=== PATIENT | male | born 1950 | race Caucasian/White ===

== ENCOUNTER 2017-05-06 13:19 | Emergency (ER) | payer MEDICARE ==
[~2017-05-06 13:19] MED LIST: Sodium Chloride Irrig Solution 250 ML BOT ONE
[2017-05-06] MEDS ORDERED: Lidocaine 1% 20 ML MDV ONE (14:10)
--- NOTE | 2017-05-06 14:10 | RAD ---
LEFT THUMB THREE VIEWS: 05/06/2017 HISTORY: Trauma to left distal thumb. Laceration. FINDINGS: There is a minimally comminuted fracture involving the distal portion of the distal phalanx and tuft distal phalanx, left thumb, with slight separation of the fracture fragments. There is subcutaneous emphysema and findings suggestive of a laceration involving the left thumb, both volarly and dorsally . The fracture is just beneath the nail bed, suggesting an open fracture. There is osteoarthritis i nvolving the first carpometacarpal joint and first metacarpophalangeal joint. IMPRESSION: Fracture tuft distal phalanx, which is just beneath the nail bed, and findings are likely related to an open fracture. There is a laceration involving the distal left thumb. POS: [facility]
[2017-05-06] MEDS ORDERED: Triple Antibiotic Oint 1 GM Packet ONE (14:51)
== END 2017-05-06 15:18 | disposition home or self-care (01) ==
LOC: MADERS 13:19
DX: S62.522B Displaced fracture of distal phalanx of left thumb, initial encounter for open fracture (principal); M10.9 Gout, unspecified; I10 Essential (primary) hypertension; E11.9 Type 2 diabetes mellitus without complications; Z79.84 Long term (current) use of oral hypoglycemic drugs; Z79.899 Other long term (current) drug therapy; W31.89XA Contact with other specified machinery, initial encounter
CPT/HCPCS: 11760; J2001